=== PATIENT | male | born 1960 | race Caucasian/White ===

== ENCOUNTER 2017-03-03 06:26 | Emergency (ER) | payer MEDICARE, MEDICAID ==
[2017-03-03 07:12] LABS: BASOPHILS % (AUTO) 2 % (0-3); EOSINOPHILS % (AUTO) 2 % (0-9); HEMATOCRIT 42 % (39-53); MEAN CORPUSCULAR HGB CONC 36.2 gm/dl (32.0-36.0); MEAN CORPUSCULAR VOLUME 96 fL (80-100); NEUTROPHILS % (AUTO) 64.8 % (37-80)
[2017-03-03 07:25] LABS: APPEARANCE,URINE Cloudy; BILIRUBIN,URINE 3+ (NEGATIVE); COLOR,URINE Red; GLUCOSE, URINE (UA) NEGATIVE (NEGATIVE); KETONES,URINE 1+ (NEGATIVE); LEUKOCYTE ESTERASE ,URINE 3+ (NEGATIVE); NITRATE,URINE NEGATIVE (NEGATIVE); OCCULT BLOOD,URINE 3+ (NEG-TRACE); PH,URINE 6.5
[2017-03-03 07:31] LABS: ALBUMIN 3.4 gm/dl (3.4-5.0); CALCIUM 8.3 mg/dl (8.5-10.1); POTASSIUM 3.9 mMol/L (3.5-5.1)
[2017-03-03 07:38] LABS: RBC,URINE TNTC (0-3AV/HPF); WBC,URINE 40-60 (0-5AV/HPF)
[2017-03-03 07:47] LABS: ICTOTEST,URINE NEGATIVE (NEGATIVE)
[2017-03-03 08:05] LABS: NORMAL RBCS NORMAL RBCS
[2017-03-03] MEDS ORDERED: ACETAMINOPHEN 325 MG PO ONE (08:43)
[2017-03-03] MEDS ORDERED: ACETAMINOPHEN 325 MG ONE (08:44)
[2017-03-03 09:08] VITALS: BP 113/75; PULSE 77; RESP 20; TEMP 98.8; O2SAT 97
== END 2017-03-03 09:25 | disposition home or self-care (01) | DRG 690 ==
LOC: ED 06:26
DX: N30.00 Acute cystitis without hematuria (principal)
CPT/HCPCS: 36415; 74176; 80053; 81001; 85025; 99283; 99284

== ENCOUNTER 2017-04-22 13:28 | Inpatient (IN) | payer MEDICARE, MEDICAID ==
[~2017-04-22 13:28] MED LIST: SODIUM CHLORIDE 0.9% 1000ML 1,000 ML IV NR
[2017-04-22] MEDS ORDERED: LEVOFLOXACIN 25 MG/ML 500 MG in SODIUM CHLORIDE 0.9% 100 ML 100 ML IV ONE (13:35)
[2017-04-22] MEDS ORDERED: ACETAMINOPHEN 325 MG PO PRN (13:38)
[2017-04-22] MEDS ORDERED: LEVOFLOXACIN 25 MG/ML SOL IV ONE (14:41)
[2017-04-22] MEDS ORDERED: SODIUM CHLORIDE 0.9% 100 ML 100 ML IV ONE (14:41)
[2017-04-22] MEDS: SODIUM CHLORIDE 0.9% FLUSH 10 ML SOL IV SCH ×2 (14:51→22:41)
[2017-04-22] MEDS: ACETAMINOPHEN 325 MG PO SCH ×2 (14:52→21:36)
[2017-04-22] MEDS: SODIUM CHLORIDE 0.9% 1000ML 1,000 ML IV SCH ×3 (16:23→23:52)
[2017-04-22] MEDS ORDERED: PATIENT EDUCATION 1 MISC PRN (19:26)
[2017-04-23] MEDS: SODIUM CHLORIDE 0.9% 1000ML 1,000 ML IV SCH (05:58)
[2017-04-23] MEDS: SODIUM CHLORIDE 0.9% FLUSH 10 ML SOL IV SCH ×3 (05:58→16:13)
[2017-04-23 07:19] LABS: CALCIUM 7.4 mg/dl (8.5-10.1); POTASSIUM 3.5 mMol/L (3.5-5.1)
[2017-04-23 07:31] LABS: HEMATOCRIT 29 % (39-53); MEAN CORPUSCULAR HGB CONC 34.9 gm/dl (32.0-36.0); MEAN CORPUSCULAR VOLUME 98 fL (80-100)
[2017-04-23 08:06] LABS: ANISOCYTOSIS SLIGHT; BASOPHILS % (MANUAL) 2 % (0-3); EOSINOPHILS % (MANUAL) 2 % (0-9); LYMPHOCYTES % (MANUAL) 20 % (10-50)
[2017-04-23] MEDS: ACETAMINOPHEN 325 MG PO SCH ×2 (09:46→20:34)
[2017-04-23] MEDS: LEVOFLOXACIN 500 MG TAB PO SCH (09:46)
[2017-04-23] MEDS: LEVOTHYROXINE SODIUM 50 MCG TAB PO SCH (09:46)
[2017-04-23] MEDS: FLUDROCORTISONE ACETATE 0.1 MG TAB PO SCH ×2 (09:48→14:15)
[2017-04-23] MEDS ORDERED: GABAPENTIN 300 MG CAP PO SCH (21:00)
[2017-04-24] MEDS: LEVOTHYROXINE SODIUM 50 MCG TAB PO SCH (06:39)
[2017-04-24 07:02] LABS: BASOPHILS % (AUTO) 2 % (0-3); EOSINOPHILS % (AUTO) 2 % (0-9); HEMATOCRIT 32 % (39-53); MEAN CORPUSCULAR HGB CONC 35.7 gm/dl (32.0-36.0); MEAN CORPUSCULAR VOLUME 96 fL (80-100); MONOCYTES % (AUTO) 10.7 % (0-12); NEUTROPHILS % (AUTO) 57.3 % (37-80)
[2017-04-24 07:11] LABS: ALBUMIN 2.1 gm/dl (3.4-5.0); POTASSIUM 3.4 mMol/L (3.5-5.1)
[2017-04-24 07:40] LABS: NORMAL RBCS PRESENT
[2017-04-24] MEDS: FLUDROCORTISONE ACETATE 0.1 MG TAB PO SCH (08:38)
[2017-04-24] MEDS: ACETAMINOPHEN 325 MG PO SCH (08:38)
[2017-04-24] MEDS: LEVOFLOXACIN 500 MG TAB PO SCH (08:38)
[2017-04-24 12:02] VITALS: BP 100/71; PULSE 80; RESP 16; TEMP 98.3; O2SAT 95
== END 2017-04-24 14:35 | disposition swing bed (61) | DRG 689 ==
LOC: ACUTE CARE 13:28
PROVIDERS: ADMIT Family Medicine; ATTEND Family Medicine
DX: N30.01 Acute cystitis with hematuria (principal); J18.1 Lobar pneumonia, unspecified organism; Q90.9 Down syndrome, unspecified; F79 Unspecified intellectual disabilities; R33.9 Retention of urine, unspecified; E03.9 Hypothyroidism, unspecified; G62.9 Polyneuropathy, unspecified
CPT/HCPCS: 36415; 51798; 71020; 80048; 80053; 85007; 85025; 85027; 99070; J1956

== ENCOUNTER 2017-04-24 13:24 | Inpatient (IN) | payer MEDICARE, MEDICAID ==
[2017-04-24] MEDS ORDERED: PATIENT EDUCATION 1 MISC PRN (13:46)
[2017-04-24] MEDS ORDERED: GABAPENTIN 300 MG CAP PO SCH (21:00)
[2017-04-24] MEDS: ACETAMINOPHEN 325 MG PO SCH (21:49)
[2017-04-25] MEDS: ACETAMINOPHEN 325 MG PO PRN ×2 (03:37→12:57)
[2017-04-25] MEDS ORDERED: LEVOTHYROXINE SODIUM 50 MCG TAB PO SCH (07:00)
[2017-04-25] MEDS ORDERED: LEVOFLOXACIN 500 MG TAB PO SCH (09:00)
[2017-04-25] MEDS ORDERED: FLUDROCORTISONE ACETATE 0.1 MG TAB PO SCH (09:00)
[2017-04-25] MEDS: ACETAMINOPHEN 325 MG PO SCH (09:08)
[2017-04-25 09:19] VITALS: BP 98/62; PULSE 74; RESP 20; TEMP 97.4; O2SAT 92
== END 2017-04-25 13:45 | DRG 696 ==
LOC: ACUTE CARE 14:40
PROVIDERS: ADMIT Family Medicine; ATTEND Family Medicine
DX: R31.0 Gross hematuria (principal); G62.9 Polyneuropathy, unspecified; Q90.9 Down syndrome, unspecified; F79 Unspecified intellectual disabilities; R33.9 Retention of urine, unspecified; E03.9 Hypothyroidism, unspecified

== ENCOUNTER 2018-08-29 09:36 | Emergency (ER) | payer MEDICARE, OTHER ==
[2018-08-29 09:41] VITALS: TEMP 97.6
[2018-08-29] MEDS ORDERED: SODIUM CHLORIDE 0.9% 1000ML 1,000 ML IV ONE (09:56)
[2018-08-29] MEDS ORDERED: ACETAMINOPHEN 325 MG PO PRN ×2 (10:00→10:03)
[2018-08-29] MEDS ORDERED: [UNRECOGNIZED DRUG - OTHER] PO PRN (10:03)
[2018-08-29 10:18] LABS: BASOPHILS % (AUTO) 1 % (0-3); EOSINOPHILS % (AUTO) 1 % (0-9); HEMATOCRIT 47 % (39-53); HEMOGLOBIN 15.7 gm/dl (13.5-17.7); LYMPHOCYTES % (AUTO) 10.1 % (10-50); MEAN CORPUSCULAR HEMOGLOBIN 33.4 pg (27.0-32.0); MEAN CORPUSCULAR HGB CONC 33.6 gm/dl (32.0-36.0); MONOCYTES % (AUTO) 1.5 % (0-12); NEUTROPHILS % (AUTO) 86.3 % (37-80)
[2018-08-29 10:20] LABS: LACTIC ACID 1.7 mMol/L (0.0-2.0)
[2018-08-29 10:27] LABS: MEAN CORPUSCULAR VOLUME 100 fL (80-100)
[2018-08-29 10:50] LABS: ALKALINE PHOSPHATASE 108 IU/L (46-116); ALT 23 IU/L (14-63); AST 32 IU/L (15-37); BILIRUBIN,TOTAL 0.7 mg/dl (0.2-1.0); BLOOD UREA NITROGEN 19 mg/dl (7-18); CALCIUM 8.8 mg/dl (8.5-10.1); CARBON DIOXIDE 29.2 mEq/L (21-32); CHLORIDE 106 mMol/L (98-107); CREATININE 1.57 mg/dl (0.80-1.30); GLUCOSE 82 mg/dl (74-106); POTASSIUM 3.8 mMol/L (3.5-5.1); SODIUM 142 mMol/L (136-145); TOTAL PROTEIN 7.3 gm/dl (6.4-8.2); TROP I < 0.017 ng/ml (0.000-0.056)
[2018-08-29] MEDS ORDERED: HEPARIN SODIUM 5000 U/ML SOL IV ONE (13:46)
[2018-08-29] MEDS ORDERED: HEPARIN PREMIX 25,000 U/250 ML SOL IV PRN (13:49)
[2018-08-29] MEDS ORDERED: HEPARIN SODIUM 5000 U/ML SOL ONE (13:54)
[2018-08-29 15:57] VITALS: BP 158/91; PULSE 63; RESP 16; O2SAT 98
[2018-08-29] MEDS ORDERED: GABAPENTIN 300 MG PO SCH (21:00)
[2018-08-30] MEDS ORDERED: LEVOTHYROXINE SODIUM 50 MCG PO SCH (07:00)
[2018-08-30] MEDS ORDERED: FLUDROCORTISONE ACETATE PO SCH (09:00)
[2018-08-30] MEDS ORDERED: MULTIVITAMIN PO SCH (09:00)
== END 2018-08-29 15:35 | disposition short-term general hospital (02) | DRG 312 ==
LOC: ED 09:36
DX: R55 Syncope and collapse (principal)
CPT/HCPCS: 36415; 71275; 80053; 84484; 85025; 85378; 93005; 96365; 96366; 96374; 99284; 99285; J1644; Q9967

== ENCOUNTER 2019-01-07 07:12 | Emergency (ER) | payer MEDICARE, OTHER ==
[2019-01-07 07:33] VITALS: TEMP 98
[2019-01-07] MEDS ORDERED: ALBUTEROL/IPRATROPIUM 1 VIAL SOL ONE (07:35)
[2019-01-07] MEDS ORDERED: ALBUTEROL/IPRATROPIUM 1 VIAL SOL INH ONE (07:37)
[2019-01-07] MEDS ORDERED: AZITHROMYCIN 250 MG TAB PO ONE (07:38)
[2019-01-07] MEDS ORDERED: AZITHROMYCIN 250 MG TAB ONE (07:55)
[2019-01-07 08:14] LABS: INFLUENZA A NEGATIVE (NEGATIVE); INFLUENZA B POSITIVE (NEGATIVE)
[2019-01-07 09:44] VITALS: BP 106/71; PULSE 76; RESP 18; O2SAT 97
== END 2019-01-07 08:51 | disposition home or self-care (01) | DRG 204 ==
LOC: ED 07:12
DX: R05 Cough (principal); J18.1 Lobar pneumonia, unspecified organism; R50.9 Fever, unspecified; R06.02 Shortness of breath
CPT/HCPCS: 71045; 87804; 99283; 99284; A9270-GY

== ENCOUNTER 2019-01-10 20:37 | Emergency (ER) | payer MEDICARE, OTHER ==
[2019-01-10 20:56] VITALS: RESP 20; TEMP 98
[2019-01-10] MEDS ORDERED: AMOXIL/CLAVULANATE 400/5 ML PDR PO ONE (22:24)
[2019-01-10] MEDS ORDERED: AUGMENTIN(FRIDGE) 400 MG/5 ML ONE (22:30)
[2019-01-10 22:47] VITALS: BP 156/95; PULSE 86; O2SAT 100
== END 2019-01-10 22:43 | disposition home or self-care (01) | DRG 864 ==
LOC: ED 20:37
DX: R50.9 Fever, unspecified (principal); R05 Cough
CPT/HCPCS: 99282; 99283; A9270-GY

== ENCOUNTER 2019-01-12 10:33 | Inpatient (IN) | payer MEDICARE, OTHER ==
[2019-01-12] MEDS ORDERED: SODIUM CHLORIDE 0.9% 500 ML 500 ML IV ONE (10:56)
[2019-01-12] MEDS ORDERED: ALBUTEROL NEB SOL 2.5MG/3ML 1 VIAL SOL NEB PRN (10:57)
[2019-01-12] MEDS ORDERED: IBUPROFEN 400 MG TAB PO PRN (11:15)
[2019-01-12] MEDS: DEXTROSE/SALINE 0.45/KCL 20MEQ 1,000 ML/1,000 ML SOL IV SCH ×2 (12:06→21:45)
[2019-01-12] MEDS: ENOXAPARIN 40 MG SOL SC SCH (12:25)
[2019-01-12] MEDS: ACETAMINOPHEN 325 MG PO PRN (12:25)
[2019-01-12] MEDS: DOXYCYCLINE 100 MG TAB PO SCH ×2 (13:01→20:47)
[2019-01-12] MEDS: ALBUTEROL/IPRATROPIUM 1 VIAL SOL INH SCH ×3 (13:08→20:49)
[2019-01-12] MEDS: GABAPENTIN 300 MG CAP PO SCH (20:47)
[2019-01-12] MEDS: FLUTICASONE PROPIONATE SPR NAS SCH (20:48)
[2019-01-13] MEDS: LEVOTHYROXINE SODIUM 50 MCG TAB PO SCH (06:09)
[2019-01-13 07:23] LABS: CALCIUM 8.5 mg/dl (8.5-10.1); CARBON DIOXIDE 28.6 mEq/L (21-32); CREATININE 1.22 mg/dl (0.80-1.30); POTASSIUM 4.2 mMol/L (3.5-5.1)
[2019-01-13 07:34] LABS: HEMATOCRIT 44 % (39-53); HEMOGLOBIN 14.6 gm/dl (13.5-17.7); MEAN CORPUSCULAR HGB CONC 33.2 gm/dl (32.0-36.0)
[2019-01-13 08:25] LABS: MEAN CORPUSCULAR VOLUME 99 fL (80-100)
[2019-01-13 08:26] LABS: BAND NEUTROPHILS % (MANUAL) 7 %; BASOPHILS % (MANUAL) 0 % (0-3); EOSINOPHILS % (MANUAL) 3 % (0-9); LYMPHOCYTES % (MANUAL) 27 % (10-50); MONOCYTES % (MANUAL) 6 % (0-12); NEUTROPHILS % (MANUAL) 58 % (37-80); NORMAL RBCS PRESENT
[2019-01-13] MEDS: MULTIVITAMIN2 1 EA TAB PO SCH (08:49)
[2019-01-13] MEDS: FLUDROCORTISONE ACETATE 0.1 MG TAB PO SCH (08:49)
[2019-01-13] MEDS: ACETAMINOPHEN 325 MG PO PRN (08:49)
[2019-01-13] MEDS: DOXYCYCLINE 100 MG TAB PO SCH ×2 (08:49→21:44)
[2019-01-13] MEDS: ALBUTEROL/IPRATROPIUM 1 VIAL SOL INH SCH ×4 (08:56→21:44)
[2019-01-13] MEDS: DEXTROSE/SALINE 0.45/KCL 20MEQ 1,000 ML/1,000 ML SOL IV SCH (09:51)
[2019-01-13] MEDS: ENOXAPARIN 40 MG SOL SC SCH (12:03)
[2019-01-13] MEDS: GABAPENTIN 300 MG CAP PO SCH (21:44)
[2019-01-13] MEDS: FLUTICASONE PROPIONATE SPR NAS SCH (21:44)
[2019-01-14 07:44] VITALS: BP 152/85; RESP 20; TEMP 98.3; O2SAT 93
[2019-01-14] MEDS: FLUDROCORTISONE ACETATE 0.1 MG TAB PO SCH (08:51)
[2019-01-14] MEDS: MULTIVITAMIN2 1 EA TAB PO SCH (08:51)
[2019-01-14] MEDS: DOXYCYCLINE 100 MG TAB PO SCH (08:51)
[2019-01-14] MEDS: ALBUTEROL/IPRATROPIUM 1 VIAL SOL INH SCH (09:30)
[2019-01-14 10:10] VITALS: PULSE 84
[2019-01-14] MEDS: LEVOTHYROXINE SODIUM 50 MCG TAB PO SCH (11:26)
== END 2019-01-14 11:20 | disposition home or self-care (01) | DRG 194 ==
LOC: ACUTE CARE 10:33
PROVIDERS: ADMIT Emergency Medicine; ATTEND Emergency Medicine
DX: J10.1 Influenza due to other identified influenza virus with other respiratory manifestations (principal); N30.00 Acute cystitis without hematuria; E86.0 Dehydration; R05 Cough
CPT/HCPCS: 36415; 80048; 85007; 85027; 94150; 94640; J1650; A9270-GY

== ENCOUNTER 2019-03-27 09:45 | Emergency (ER) | payer MEDICARE, OTHER ==
[2019-03-27 10:00] VITALS: RESP 18; TEMP 97.6
[2019-03-27 11:04] LABS: CALCIUM 8.1 mg/dl (8.5-10.1); CREATININE 1.15 mg/dl (0.80-1.30)
[2019-03-27 11:13] LABS: CARBON DIOXIDE 32.5 mEq/L (21-32)
[2019-03-27 11:31] LABS: INR 1.06 (0.87-1.13)
[2019-03-27 11:48] LABS: HEMATOCRIT 48 % (39-53); HEMOGLOBIN 15.5 gm/dl (13.5-17.7); MEAN CORPUSCULAR HGB CONC 32.1 gm/dl (32.0-36.0)
[2019-03-27 11:53] LABS: MEAN CORPUSCULAR VOLUME 106 fL (80-100)
[2019-03-27 12:23] LABS: BAND NEUTROPHILS % (MANUAL) 0 %; BASOPHILS % (MANUAL) 1 % (0-3); EOSINOPHILS % (MANUAL) 5 % (0-9); LYMPHOCYTES % (MANUAL) 27 % (10-50); MONOCYTES % (MANUAL) 9 % (0-12); NEUTROPHILS % (MANUAL) 58 % (37-80)
[2019-03-27 12:24] LABS: ANISOCYTOSIS SLIGHT
[2019-03-27 12:29] VITALS: BP 128/103; PULSE 58; O2SAT 94
== END 2019-03-27 12:08 | disposition home or self-care (01) | DRG 603 ==
LOC: ED 09:45
DX: L03.115 Cellulitis of right lower limb (principal); R23.3 Spontaneous ecchymoses; D69.6 Thrombocytopenia, unspecified
CPT/HCPCS: 36415; 80048; 85007; 85027; 85610; 85730; 93005; 99283